=== PATIENT | female | born 1965 ===

== ENCOUNTER → 2021-10-04 | Outpatient (CLI) | payer OTHER | END | disposition home or self-care (01) | LOC: PPH VACUNA 08:06 | PROVIDERS: ATTEND Emergency Medicine Pediatric Emergency Medicine | DX: Z23 Encounter for immunization (principal) ==

== ENCOUNTER 2022-08-02 09:15 | Outpatient (CLI) | payer OTHER | END 2022-08-02 09:25 | disposition home or self-care (01) | LOC: PPH VACUNA 09:15 | PROVIDERS: ATTEND Emergency Medicine Pediatric Emergency Medicine | DX: Z23 Encounter for immunization (principal) ==

== ENCOUNTER 2024-09-11 11:30 | Inpatient (IN) | payer OTHER ==
[~2024-09-11] VITALS: Ht 157.5 cm; Wt 56.7 kg
[2024-09-18] MEDS ORDERED: LIDOCAINE HCL 1%/EPINEPHRINE 20ML VIAL IJ ONE (08:45)
[2024-09-18] MEDS ORDERED: METRONIDAZOLE/SODIUM CHLORIDE 500 MG/100 ML PIGGYBACK IV ONE (08:45)
[2024-09-18] MEDS ORDERED: BUPIVACAINE HCL 30 ML VIAL IV ONE (08:45)
[2024-09-18] MEDS ORDERED: levoFLOXacin IN DEXTROSE 5 % 5 MG/ML PIGGYBAG IV ONE (08:45)
[2024-09-18] MEDS ORDERED: PERCOCET 5-3251 EACH PO (09:38)
[2024-09-18] MEDS ORDERED: RECTICARE30 GM TOP (09:38)
[2024-09-18] MEDS ORDERED: MORPHINE SULFATE 4 MG/ML CARTRIDGE IV PRN (10:15)
[2024-09-18] MEDS ORDERED: OxyCODONE HCL 5 MG TABLET (ROXICODONE) PO PRN (10:15)
[2024-09-18] MEDS ORDERED: ONDANSETRON HCL 2 MG/ML VIAL IV PRN (10:15)
[2024-09-18] MEDS ORDERED: DEXTROSE 50 % IN WATER 0.5 G/ML DISP.SYRIN IV PRN (10:15)
[2024-09-18] MEDS ORDERED: 0.9 % SODIUM CHLORIDE 1,000 ML IV SCH (10:15)
[2024-09-18] MEDS ORDERED: MORPHINE SULFATE 4 MG/ML VIAL IV ONE (10:45)
[2024-09-18 12:45] LABS: HEMATOCRIT 34.6 % (36.0-45.00); HEMOGLOBIN 11.4 g/dL (12.0-15.00); MEAN CELL VOLUME 96.1 fL (80.00-100.00); MEAN CORPUSCULAR HEMOGLOBIN 31.8 pg (27.00-32.0); MEAN CORPUSCULAR HGB CONC 33.1 g/dl (32.0-36.0); PLATELET COUNT 217 K/uL (150-450)
[2024-09-18] MEDS ORDERED: HYOSCYAMINE SULFATE 0.125 MG TAB.SUBL SL SCH (13:00)
[2024-09-18 13:08] LABS: ALBUMIN 2.9 gm/dL (3.4-5.0); CREATININE SERUM 0.63 mg/dL (0.55-1.02); GFR 97.4; MAGNESIUM 1.8 mg/dL (1.8-2.4); PHOSPHOROUS 3.5 mg/dL (2.5-4.9); POTASSIUM 4.61 mEq/L (3.5-5.1)
[2024-09-18] MEDS ORDERED: ACETAMINOPHEN 500 MG GEL..CAP PO SCH (14:00)
[2024-09-18] MEDS ORDERED: POLYETHYLENE GLYCOL 3350 17 GM BLIST.PACK PO SCH (17:00)
[2024-09-18] MEDS ORDERED: METRONIDAZOLE/SODIUM CHLORIDE 500 MG/100 ML PIGGYBACK IV SCH (17:00)
[2024-09-18] MEDS ORDERED: GABAPENTIN 300 MG CAPSULE PO SCH (17:00)
[2024-09-18] MEDS ORDERED: CELECOXIB 200 MG CAPSULE PO SCH (21:00)
[2024-09-18] MEDS ORDERED: FAMOTIDINE/PF 20 MG/2 ML VIAL IV PUSH SCH (21:00)
[2024-09-18 23:50] VITALS: BP 101/52; O2SAT 98
[2024-09-19 07:30] LABS: HEMATOCRIT 32.8 % (36.0-45.00); HEMOGLOBIN 11.3 g/dL (12.0-15.00); MEAN CELL VOLUME 93.1 fL (80.00-100.00); MEAN CORPUSCULAR HGB CONC 34.4 g/dl (32.0-36.0); PLATELET COUNT 211 K/uL (150-450); RED BLOOD COUNT 3.53 M/uL (4.00-6.00); RED CELL DISTRIBUTION WIDTH 13.4 % (11.5-14.5)
[2024-09-19 08:00] VITALS: BP 108/60; O2SAT 98
[2024-09-19 08:01] LABS: ALBUMIN 2.7 gm/dL (3.4-5.0); CREATININE SERUM 0.59 mg/dL (0.55-1.02); GFR 105.06; PHOSPHOROUS 2.3 mg/dL (2.5-4.9); POTASSIUM 3.97 mEq/L (3.5-5.1)
[2024-09-19] MEDS ORDERED: POTASSIUM PHOS,M-BASIC-D-BASIC 3 MM/ML VIAL IV NR (09:30)
[2024-09-19 14:20] VITALS: BP 108/74; O2SAT 97
[2024-09-19] MEDS ORDERED: ENOXAPARIN SODIUM 40 MG/0.4 ML SYRINGE SUBCUTANEO SCH (17:00)
[2024-09-20] VITALS: BP 112/58; O2SAT 97
[2024-09-20 08:00] VITALS: BP 125/60; O2SAT 100
[2024-09-20 08:20] LABS: HEMATOCRIT 32.7 % (36.0-45.00); HEMOGLOBIN 10.9 g/dL (12.0-15.00); MEAN CORPUSCULAR HEMOGLOBIN 31.7 pg (27.00-32.0); MEAN CORPUSCULAR HGB CONC 33.3 g/dl (32.0-36.0); PLATELET COUNT 208 K/uL (150-450); RED BLOOD COUNT 3.44 M/uL (4.00-6.00)
[2024-09-20 08:44] LABS: CREATININE SERUM 0.52 mg/dL (0.55-1.02); GFR 121.54; MAGNESIUM 2.1 mg/dL (1.8-2.4); POTASSIUM 5.21 mEq/L (3.5-5.1)
[2024-09-20] MEDS ORDERED: ENOXAPARIN SODIUM 40 MG/0.4 ML SYRINGE SUBCUTANEO SCH (09:00)
[2024-09-20] MEDS ORDERED: POTASSIUM PHOS,M-BASIC-D-BASIC 3 MM/ML VIAL IV NR (10:15)
[2024-09-20] MEDS ORDERED: NEURONTIN300 MG PO (11:12)
[2024-09-20] MEDS ORDERED: LEVSIN/SL0.125 MG SL (11:12)
[2024-09-20] MEDS ORDERED: ACETAMINOPHEN500 M2 PO (11:13)
[2024-09-20] MEDS ORDERED: INTESTINEX680 M2 PO (11:13)
[2024-09-20] MEDS ORDERED: NAPH,MB-DB/K PH,MBDB 1 PKT PACKET PO NR (12:00)
== END 2024-09-20 14:58 | disposition home or self-care (01) | DRG 331 ==
LOC: O/R 09-18 05:28 → SURH 09-18 07:00
PROVIDERS: Internal Medicine Geriatric Medicine; ADMIT Surgery; ATTEND Surgery
PROC: 0DTG4ZZ Resection of Left Large Intestine, Percutaneous Endoscopic Approach (ICD-10-PCS; principal; 2024-09-18 07:00)
DX: C18.9 Malignant neoplasm of colon, unspecified (principal); R59.0 Localized enlarged lymph nodes; D64.89 Other specified anemias; E83.39 Other disorders of phosphorus metabolism; R19.4 Change in bowel habit; R19.5 Other fecal abnormalities; E78.5 Hyperlipidemia, unspecified